=== PATIENT | female | born 1995 | race Caucasian/White ===

== ENCOUNTER 2018-01-28 21:46 | Emergency (ER) | payer BC ==
[2018-01-28] MEDS ORDERED: Sodium Chloride 0.9% 1,000 ML IV ONE (22:25)
[2018-01-28] MEDS ORDERED: Ketorolac 60 MG/2 ML SDV IM ONE (22:25)
[2018-01-28] MEDS ORDERED: Ondansetron 4 MG/2 ML SDV IVPUSH ONE (23:13)
[2018-01-28] MEDS ORDERED: HYDROmorphone 1 MG/ML Syringe IVPUSH ONE (23:46)
[2018-01-29] MEDS ORDERED: HYDROmorphone 1 MG/ML Syringe IVPUSH ONE (01:37)
[2018-01-29] MEDS ORDERED: Ondansetron 4 MG/2 ML SDV IVPUSH ONE (01:37)
--- NOTE | 2018-01-29 02:56 | EDM.PDOC ---
ED HPI GENERAL MEDICAL PROBLEM - General Chief Complaint: Abdominal Pain Stated Complaint: ABDOMINAL PAIN Time Seen by Provider: 01/28/18 21:48 Source of Information: Reports: Patient History Limitations: Reports: No Limitations - History of Present Illness INITIAL COMMENTS - FREE TEXT/NARRATIVE: See dictated documentation. Right Lower Abdominal Pain Score (Numeric/FACES): 9 - Related Data Allergies Allergy/AdvReac Type Severity Reaction Status Date / Time cephalexin [From Keflex] Allergy Cannot Verified 01/28/18 22:03 Remember codeine Allergy Tachycardia Verified 01/28/18 22:03 sertraline [From Zoloft] Allergy Other Verified 01/28/18 22:03 Home Meds: Home Meds Buspar. 01/28/18 [History] Clonazepam. 01/28/18 [History] Effexor. 01/28/18 [History] Hydrocodone/Acetaminophen [Hydrocodon-Acetaminophen 5-325] 1 tab PO Q6H PRN [History] Past Medical History Psychiatric History: Reports: Anxiety, Depression Social & Family History - Tobacco Use Smoking Status *Q: Unknown Ever Smoked ED ROS GENERAL - Review of Systems Review Of Systems: ROS reveals no pertinent complaints other than HPI. ED EXAM, GI/ABD - Physical Exam Exam: See Below Course - Vital Signs Last Recorded V/S: Last Vital Signs Temp 36.8 C 01/28/18 22:04 Pulse 87 01/28/18 22:04 Resp 18 01/28/18 22:04 BP 147/105 H 01/28/18 22:04 Pulse Ox 99 01/28/18 22:04 - Orders/Labs/Meds Orders: Active Orders 24 hr Category Date Time Status Pelvic Exam, Set Up [RC] ASDIRECTED Care 01/28/18 23:20 Active Abdomen Pelvis wo Cont [CT] Stat Exams 01/29/18 01:01 Taken Labs: Laboratory Tests 01/28/18 Range/Units 23:40 Urine Color Yellow (Yellow) Urine Appearance Clear (Clear) Urine pH 6.0 (5.0-8.0) Ur Specific [place] > or = 1.030 (1.005-1.030) Urine Protein 2+ H (Negative) Urine Glucose (UA) Negative (Negative) Urine Ketones Negative (Negative) Urine Occult Blood 2+ H (Negative) Urine Nitrite Negative (Negative) Urine Bilirubin Negative (Negative) Urine Urobilinogen 0.2 (0.2-1.0) Ur Leukocyte Esterase Negative (Negative) Urine RBC 5-10 H (0-5) /hpf Urine WBC Not seen (0-5) /hpf Ur Epithelial Cells 0-5 (0-5) /hpf Urine Bacteria Rare (FEW) /hpf Urine Mucus Not seen (FEW) /hpf Meds: Medications Discontinued Medications Generic Name Dose Route Start Last Admin Trade Name Freq PRN Reason Stop Dose Admin Hydromorphone HCl 1 mg 01/28/18 23:46 01/28/18 23:56 Dilaudid IVPUSH 01/28/18 23:47 1 mg ONETIME ONE Administration Hydromorphone HCl 1 mg 01/29/18 01:37 01/29/18 01:47 Dilaudid IVPUSH 01/29/18 01:38 1 mg ONETIME ONE Administration Sodium Chloride 1,000 mls @ 999 mls/hr 01/28/18 22:25 01/28/18 22:57 Normal Saline IV 01/28/18 23:25 999 mls/hr ONETIME ONE Administration Ketorolac Tromethamine 60 mg 01/28/18 22:25 01/28/18 22:57 Toradol IM 01/28/18 22:26 60 mg ONETIME ONE Administration Ondansetron HCl 4 mg 01/28/18 23:13 01/28/18 23:44 Zofran IVPUSH 01/28/18 23:14 4 mg ONETIME ONE Administration Ondansetron HCl 4 mg 01/29/18 01:37 01/29/18 01:47 Zofran IVPUSH 01/29/18 01:38 4 mg ONETIME ONE Administration Departure - Departure Time of Disposition: 02:54 Disposition: Home, Self-Care 01 Condition: Fair Clinical Impression: Abdominal pain Qualifiers: Abdominal location: lower abdomen, unspecified Qualified Code(s): R10.30 - Lower abdominal pain, unspecified - Discharge Information *PRESCRIPTION DRUG MONITORING PROGRAM REVIEWED*: Not Applicable *COPY OF PRESCRIPTION DRUG MONITORING REPORT IN PATIENT ARUN: Not Applicable Instructions: Abdominal Pain, Adult, [id number] Referrals: PCP,None [Primary Care Provider] - Additional Instructions: Followup with your provider, as discussed. clear liquids. Return if fever or worsening pain. - My Orders Last 24 Hours: My Active Orders 01/28/18 23:20 Pelvic Exam, Set Up [RC] ASDIRECTED 01/29/18 01:01 Abdomen Pelvis wo Cont [CT] Stat - Assessment/Plan Last 24 Hours: My Active Orders 01/28/18 23:20 Pelvic Exam, Set Up [RC] ASDIRECTED 01/29/18 01:01 Abdomen Pelvis wo Cont [CT] Stat
--- NOTE | 2018-01-29 04:00 | ER ---
REASON FOR EMERGENCY ROOM VISIT: Abdominal pain. HISTORY OF PRESENT ILLNESS: This 22-year-old girl comes in with a right-sided abdominal pain. She is accompanied by her partner. She was seen at [facility] in [place] for the same problem several days ago. At which time, she states she had a CT scan that disclosed a 3 cm ovarian cyst. She was given hydrocodone. This whole incident happened approximately 1 week ago. Since then, she has had a rather constant dull pain, which worsened to a certain extent today. She did have nausea and emesis x1 after dinner. She has not had any diarrhea. She denies any fever. She is on the very end of her menstrual period. PAST MEDICAL HISTORY: May be relevant in that she had an ectopic tubal in 2011 and in 2014 had another ectopic requiring a salpingectomy. This was done at [facility] in [place]. Past medical history otherwise includes: 1. Anxiety and depression. 2. History of cholecystectomy in 2015. 3. T and A as a child. CURRENT MEDICATIONS: Effexor and clonazepam. ALLERGIES: To cephalexin, codeine, and sertraline. It is noteworthy that codeine gave her nausea, so this was a true allergy. SOCIAL HISTORY: She lives with her partner. She is not working at this time. HABITS: She admits to smoking one-half pack per day. Alcohol rare. Drugs denies. REVIEW OF SYSTEMS: She has had a recent cold, but this has resolved to a large extent. Otherwise, all pertinent positives and negatives as listed in the HPI. PHYSICAL EXAMINATION: GENERAL: Reveals an obese woman who is somewhat tearful, otherwise in no acute distress. VITAL SIGNS: She is afebrile. Pulse of 87, blood pressure 147/105, respiratory rate 18, O2 sats 99. HEENT: Head is normocephalic. No scleral icterus. Oropharynx is normal with normal appearing hydration. NECK: Supple. No adenopathy. CHEST: Clear. CARDIAC: Regular rate without murmur. ABDOMEN: Obese. She does have some tenderness in the area in the lower midline abdomen and right lower quadrant to deep palpation, but no guarding or rebound. There is no percussion tenderness. No palpable mass. PELVIC: Pelvic examination by a speculum exam was noted and there is some blood from her recent menstrual period. No abnormalities were noted. Bimanual examination revealed that she does not have any tenderness on manipulation of the cervix. I cannot palpate any tender adnexal masses. EXTREMITIES: Normal pulses. No edema. Good perfusion. FURTHER EMERGENCY ROOM COURSE: She had a CT scan. Her urinalysis was abnormal, but she is at the end of her period, so is difficult to make any determinations based on that. We went ahead and obtained a CT scan of her abdomen and pelvis without contrast. There was some suggestion of mesenteric, adenopathy, but the appendix appeared normal and no mucosal bowel abnormalities were noted. There was no fluid. There was no abnormal fluid collections and nothing to explain her symptoms. She did have some irregularity in her left renal cortex suggestive of an old pyelonephritis possibly. Her pain did subside significantly while in the ER. IMPRESSION: Is pelvic pain, uncertain etiology. PLAN: I strongly urged her to follow up with her provider. We will give her some more hydrocodone for her pain. I think followup is going to be critical with her. I emphasized this very clearly. She was given hydrocodone, 5/325, dispensed #10, one q.4 hours p.r.n. pain. She was also given Zofran 4 mg. The patient understands and agrees with this plan. All questions were answered. MMODAL /[id number] TOMAS
== END 2018-01-29 03:10 | disposition home or self-care (01) ==
LOC: JD.ED 21:46
DX: R10.2 Pelvic and perineal pain (principal); R10.31 Right lower quadrant pain; F17.210 Nicotine dependence, cigarettes, uncomplicated; Z88.5 Allergy status to narcotic agent; Z88.8 Allergy status to other drugs, medicaments and biological substances; Z90.49 Acquired absence of other specified parts of digestive tract; Z88.1 Allergy status to other antibiotic agents
CPT/HCPCS: 74176; 81001; 96361; 96372; 96374; 96375; 96376; 99284; J1170; J1885; J2405; J7040

== ENCOUNTER 2018-02-15 19:27 | Emergency (ER) | payer BC ==
[2018-02-15] MEDS ORDERED: Sodium Chloride 0.9% 10 ML Syringe FLUSH PRN (20:17)
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
[2018-02-15] MEDS ORDERED: Ondansetron 4 MG/2 ML SDV IVPUSH ONE (22:08)
[2018-02-15] MEDS ORDERED: HYDROmorphone 0.5 MG/0.5 ML SYRINGE IVPUSH ONE ×2 (22:08→23:51)
[2018-02-16] MEDS ORDERED: HYDROmorphone 0.5 MG/0.5 ML SYRINGE IVPUSH ONE ×3 (00:31→01:59)
[2018-02-16] MEDS ORDERED: Metoclopramide 10 MG/2 ML SDV IVPUSH ONE (01:59)
[2018-02-16] MEDS ORDERED: LORazepam 2 MG/ML SDV IVPUSH ONE (01:59)
--- NOTE | 2018-02-17 11:43 | US ---
Pelvic ultrasound: Multiple real-time images were obtained transvaginally. Comparison: No prior pelvic ultrasound. Uterus is anteverted. No myometrial abnormality is seen. Endometrial thickness is 7 mm. Minimal fluid within the cul-de-sac is seen which is felt to be physiologic. Ovaries appear within normal limits. No large cyst or solid abnormality is seen. Physiologic hemorrhagic cyst is noted within the right ovary measuring 2.5 cm. Measurements: Uterus: Length 8.7 cm, AP height 3.1 cm, transverse width 4.5 cm Right ovary: 3.5 x 2.1 x 2.3 cm Left ovary: 3.2 x 2.2 x 2.9 cm Impression: 1. Nothing acute seen on pelvic ultrasound exam. Diagnostic code #2 I agree with preliminary report from [facility], finalized on 02/15/18, 11:02 PM Central Time
== END 2018-02-16 02:45 | disposition home or self-care (01) ==
LOC: JD.ED 19:27
DX: N83.201 Unspecified ovarian cyst, right side (principal); F41.9 Anxiety disorder, unspecified; F32.9 Major depressive disorder, single episode, unspecified; F17.210 Nicotine dependence, cigarettes, uncomplicated; Z88.8 Allergy status to other drugs, medicaments and biological substances; Z79.899 Other long term (current) drug therapy
CPT/HCPCS: 36415; 76830; 80053; 81001; 84703; 85007; 85027; 86140; 96374; 96375; 96376; 99284; J1170; J2060; J2405; J2765; J7050

== ENCOUNTER 2018-03-02 18:48 | Emergency (ER) | payer OTHER ==
[2018-03-02] MEDS ORDERED: LORazepam 2 MG/ML SDV IM ONE (19:41)
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
== END 2018-03-02 20:56 | disposition home or self-care (01) ==
LOC: JD.ED 18:48
DX: F41.0 Panic disorder [episodic paroxysmal anxiety] (principal); F17.210 Nicotine dependence, cigarettes, uncomplicated; Z88.5 Allergy status to narcotic agent; Z88.8 Allergy status to other drugs, medicaments and biological substances; Z79.899 Other long term (current) drug therapy
CPT/HCPCS: 96372; 99283; J2060; 99284

== ENCOUNTER 2018-03-06 19:25 | Emergency (ER) | payer OTHER ==
--- NOTE | 2018-03-06 20:10 | EDM.PDOC ---
ED HPI GENERAL MEDICAL PROBLEM - General Chief Complaint: Abdominal Pain Stated Complaint: right side pain Time Seen by Provider: 03/06/18 20:10 - History of Present Illness INITIAL COMMENTS - FREE TEXT/NARRATIVE: 22-year-old female presents emergency room with abdominal pain. Patient is been worked up by her health careers instructor for right ovarian and pelvic pain and is waiting to see another physician later this month. However she's got worsening pain that seems to be different from her traditional pain. She has some nausea with this. She's had no constipation or diarrhea. No burning or frequency with urination this worsening pain is been going on for the last several days. She denies being the pain is worse in the right lower quadrant Right Lower Pelvic Pain Score (Numeric/FACES): 9 - Related Data Allergies Allergy/AdvReac Type Severity Reaction Status Date / Time cephalexin [From Keflex] Allergy Cannot Verified 03/02/18 19:11 Remember codeine Allergy Tachycardia Verified 03/02/18 19:11 sertraline [From Zoloft] Allergy Other Verified 03/02/18 19:11 Home Meds: Home Meds Venlafaxine [Effexor XR] 300 mg PO DAILY 02/16/18 [History] busPIRone [Buspar] 10 mg PO BID 02/16/18 [History] clonazePAM [Klonopin] 1 mg PO TID PRN 02/16/18 [History] Past Medical History Genitourinary History: Reports: Pyelonephritis CORE MAKER History: Reports: Ectopic , Other (See Below) Other CORE MAKER History: ovarian cysts Psychiatric History: Reports: Anxiety, Depression, Panic Attack - Infectious Disease History Infectious Disease History: Reports: Chicken Pox - Past Surgical History HEENT Surgical History: Reports: Adenoidectomy, Tonsillectomy, Other (See Below) Other HEENT Surgeries/Procedures: wisdom teeth removed GI Surgical History: Reports: Cholecystectomy Social & Family History - Family History Family Medical History: Noncontributory - Tobacco Use Smoking Status *Q: Current Every Day Smoker Years of Tobacco use: 3 Packs/Tins Daily: 0.5 - Caffeine Use Caffeine Use: Reports: Coffee, Soda, Tea - Recreational Drug Use Recreational Drug Use: No ED ROS GENERAL - Review of Systems Review Of Systems: See Below Constitutional: Reports: No Symptoms HEENT: Reports: No Symptoms Respiratory: Reports: No Symptoms Cardiovascular: Reports: No Symptoms GI/Abdominal: Reports: Abdominal Pain, Nausea. Denies: Constipation, Diarrhea : Reports: No Symptoms. Denies: Discharge, Dysuria Musculoskeletal: Reports: No Symptoms Skin: Reports: No Symptoms Neurological: Reports: No Symptoms ED EXAM, GI/ABD - Physical Exam Exam: See Below Exam Limited By: No Limitations General Appearance: Alert, No Apparent Distress Ears: Normal External Exam Head: Atraumatic, Normocephalic Neck: Normal Inspection, Supple, Non-Tender, Full Range of Motion Respiratory/Chest: No Respiratory Distress, Lungs Clear, Normal Breath Sounds Cardiovascular: Regular Rate, Rhythm, No Edema, No Murmur GI/Abdominal Exam: Other (She has some right-sided lower quadrant discomfort no rigidity rebound or guarding) Back Exam: Normal Inspection. No: CVA Tenderness (L), CVA Tenderness (R) Extremities: Normal Inspection Neurological: Alert, Oriented, Normal Cognition Course - Vital Signs Last Recorded V/S: Last Vital Signs Temp 37.3 C 03/06/18 19:55 Pulse 119 H 03/06/18 19:55 Resp 20 03/06/18 19:55 BP 142/119 H 03/06/18 19:55 Pulse Ox 100 03/06/18 19:55 - Orders/Labs/Meds Orders: Active Orders 24 hr Category Date Time Status Abdomen Pelvis w Cont [CT] Stat Exams 03/06/18 22:52 Taken Sodium Chloride 0.9% [Normal Saline] 1,000 ml Med 03/06/18 20:30 Active IV ASDIRECTED Medication Orders Sodium Chloride (Normal Saline) 1,000 mls @ 250 mls/hr IV ASDIRECTED FREDY Last Admin: 03/06/18 20:51 Dose: 250 mls/hr Labs: Laboratory Tests 03/06/18 03/06/18 03/06/18 Range/Units 20:54 20:54 21:15 WBC 13.48 H (3.98-10.04) K/mm3 RBC 4.51 (3.98-5.22) M/mm3 Hgb 14.0 (11.2-15.7) gm/L Hct 41.7 (34.1-44.9) % MCV 92.5 (79.4-94.8) fl MCH 31.0 (25.6-32.2) pg MCHC 33.6 (32.2-35.5) g/dl RDW Std Deviation 41.1 (36.4-46.3) fL Plt Count 311 (182-369) K/mm3 MPV 8.8 L (9.4-12.3) fl Neutrophils % (Manual) 65 H (40-60) % Band Neutrophils % 0 (0-10) % Lymphocytes % (Manual) 31 (20-40) % Atypical Lymphs % 0 % Monocytes % (Manual) 1 L (2-10) % Eosinophils % (Manual) 2 (0.7-5.8) % Basophils % (Manual) 1 (0.1-1.2) Toxic Granulation Few Platelet Estimate Adequate Plt Morphology Comment Normal RBC Morph Comment Normal Sodium 139 (136-145) mEq/L Potassium 4.0 (3.5-5.1) mEq/L Chloride 105 (98-107) mEq/L Carbon Dioxide 27 (21-32) mEq/L Anion Gap 11.0 (5-15) BUN 11 (7-18) mg/dL Creatinine 1.2 H (0.55-1.02) mg/dL Est Cr Clr Drug Dosing 59.80 mL/min Estimated GFR (MDRD) 55 (>60) mL/min BUN/Creatinine Ratio 9.2 L (14-18) Glucose 102 (74-106) mg/dL Calcium 9.2 (8.5-10.1) mg/dL Total Bilirubin 0.1 L (0.2-1.0) mg/dL AST 16 (15-37) U/L ALT 20 (14-59) U/L Alkaline Phosphatase 94 (46-116) U/L C-Reactive Protein 0.4 (<1.0) mg/dL Total Protein 7.0 (6.4-8.2) g/dl Albumin 3.4 (3.4-5.0) g/dl Globulin 3.6 gm/dL Albumin/Globulin Ratio 0.9 L (1-2) Urine Color (Yellow) Urine Appearance (Clear) Urine pH (5.0-8.0) Ur Specific [place] (1.005-1.030) Urine Protein (Negative) Urine Glucose (UA) (Negative) Urine Ketones (Negative) Urine Occult Blood (Negative) Urine Nitrite (Negative) Urine Bilirubin (Negative) Urine Urobilinogen (0.2-1.0) Ur Leukocyte Esterase (Negative) Urine RBC (0-5) /hpf Urine WBC (0-5) /hpf Ur Epithelial Cells (0-5) /hpf Urine Bacteria (FEW) /hpf Urine Mucus (FEW) /hpf Urine HCG, Qual Negative (NEGATIVE) 03/06/18 Range/Units 21:15 WBC (3.98-10.04) K/mm3 RBC (3.98-5.22) M/mm3 Hgb (11.2-15.7) gm/L Hct (34.1-44.9) % MCV (79.4-94.8) fl MCH (25.6-32.2) pg MCHC (32.2-35.5) g/dl RDW Std Deviation (36.4-46.3) fL Plt Count (182-369) K/mm3 MPV (9.4-12.3) fl Neutrophils % (Manual) (40-60) % Band Neutrophils % (0-10) % Lymphocytes % (Manual) (20-40) % Atypical Lymphs % % Monocytes % (Manual) (2-10) % Eosinophils % (Manual) (0.7-5.8) % Basophils % (Manual) (0.1-1.2) Toxic Granulation Platelet Estimate Plt Morphology Comment RBC Morph Comment Sodium (136-145) mEq/L Potassium (3.5-5.1) mEq/L Chloride (98-107) mEq/L Carbon Dioxide (21-32) mEq/L Anion Gap (5-15) BUN (7-18) mg/dL Creatinine (0.55-1.02) mg/dL Est Cr Clr Drug Dosing mL/min Estimated GFR (MDRD) (>60) mL/min BUN/Creatinine Ratio (14-18) Glucose (74-106) mg/dL Calcium (8.5-10.1) mg/dL Total Bilirubin (0.2-1.0) mg/dL AST (15-37) U/L ALT (14-59) U/L Alkaline Phosphatase (46-116) U/L C-Reactive Protein (<1.0) mg/dL Total Protein (6.4-8.2) g/dl Albumin (3.4-5.0) g/dl Globulin gm/dL Albumin/Globulin Ratio (1-2) Urine Color Light yellow (Yellow) Urine Appearance Clear (Clear) Urine pH 6.5 (5.0-8.0) Ur Specific [place] 1.025 (1.005-1.030) Urine Protein 1+ H (Negative) Urine Glucose (UA) Negative (Negative) Urine Ketones Negative (Negative) Urine Occult Blood Trace-intact H (Negative) Urine Nitrite Negative (Negative) Urine Bilirubin Negative (Negative) Urine Urobilinogen 0.2 (0.2-1.0) Ur Leukocyte Esterase Negative (Negative) Urine RBC 0-5 (0-5) /hpf Urine WBC 0-5 (0-5) /hpf Ur Epithelial Cells 0-5 (0-5) /hpf Urine Bacteria Rare (FEW) /hpf Urine Mucus Few (FEW) /hpf Urine HCG, Qual (NEGATIVE) Meds: Medications Generic Name Dose Route Start Last Admin Trade Name Freq PRN Reason Stop Dose Admin Sodium Chloride 1,000 mls @ 250 mls/hr 03/06/18 20:30 03/06/18 20:51 Normal Saline IV 250 mls/hr ASDIRECTED FREDY Administration Discontinued Medications Generic Name Dose Route Start Last Admin Trade Name Freq PRN Reason Stop Dose Admin Hydrocodone Bitart/Acetaminophen 1 tab 03/06/18 21:01 03/06/18 21:07 [place] 325-5 Mg PO 03/06/18 21:02 1 tab ONETIME ONE Administration Diatrizoate Meglum/Diatrizoate Sod 90 ml 03/06/18 23:35 03/07/18 00:11 Gastrografin 37% PO 03/06/18 23:36 90 ml ONETIME ONE Administration Fentanyl 50 mcg 03/06/18 21:18 03/06/18 21:23 Sublimaze IVPUSH 03/06/18 21:19 50 mcg ONETIME ONE Administration Fentanyl 50 mcg 03/06/18 23:02 03/06/18 23:10 Sublimaze IVPUSH 03/06/18 23:03 50 mcg ONETIME ONE Administration Fentanyl 50 mcg 03/07/18 01:17 Sublimaze IVPUSH 03/07/18 01:18 ONETIME ONE Iopamidol 125 ml 03/06/18 23:35 03/07/18 00:12 Isovue-300 (61%) IVPUSH 03/06/18 23:36 125 ml ONETIME ONE Administration Ondansetron HCl 4 mg 03/06/18 21:18 03/06/18 21:22 Zofran IVPUSH 03/06/18 21:19 4 mg ONETIME ONE Administration Ondansetron HCl 4 mg 03/07/18 01:17 Zofran IVPUSH 03/07/18 01:18 ONETIME ONE - Re-Assessments/Exams Free Text/Narrative Re-Assessment/Exam: 03/06/18 22:51 Patient continues to be in a lot of discomfort she's received opioids and Zofran here laboratory evaluation is unrevealing with the imaging she's had I am not sure CT would be beneficial but the patient is somewhat insistent on it at this point 03/07/18 01:[address] is normal no acute changes. I will discharge the patient with some [place] however I explained or no uncertain terms she needs to talk to her physicians about getting on a routine pain management situation it is not a role emergency room to be treating pain like this and this is turning into a problem for the patient. Departure - Departure Time of Disposition: 01:32 Disposition: Home, Self-Care 01 Clinical Impression: Abdominal pain of unknown cause - Discharge Information Referrals: PCP,None [Primary Care Provider] - Forms: ED Department Discharge Additional Instructions: Follow-up with regular physician and discuss pain management issues. Perhaps you can do this with her health careers instructor. Return to the emergency room with any questions or problems. Use the [place] one or 2 every 6 hours as needed for pain however allow 12 hours after using this medication before driving or returning to work. Use of this medication on a regular basis can cause constipation so use a stool softener if needed. - My Orders Last 24 Hours: My Active Orders 03/06/18 20:30 Sodium Chloride 0.9% [Normal Saline] 1,000 ml IV ASDIRECTED 03/06/18 22:52 Abdomen Pelvis w Cont [CT] Stat - Assessment/Plan Last 24 Hours: My Active Orders 03/06/18 20:30 Sodium Chloride 0.9% [Normal Saline] 1,000 ml IV ASDIRECTED 03/06/18 22:52 Abdomen Pelvis w Cont [CT] Stat
[2018-03-06] MEDS ORDERED: Sodium Chloride 0.9% 1,000 ML IV SCH (20:30)
[2018-03-06] MEDS ORDERED: Acetaminophen/HYDROcodone 325-5 MG Tab PO ONE (21:01)
[2018-03-06] MEDS ORDERED: fentaNYL 100 MCG/2 ML SDV IVPUSH ONE ×2 (21:18→23:02)
[2018-03-06] MEDS ORDERED: Ondansetron 4 MG/2 ML SDV IVPUSH ONE (21:18)
[2018-03-06] MEDS ORDERED: Diatrizoate Meglumine/Diatrizoate Sodium 37% 120 ML Bottle PO ONE (23:35)
[2018-03-06] MEDS ORDERED: Iopamidol 612 MG/ML 150 ML Bottle IVPUSH ONE (23:35)
[2018-03-07] MEDS ORDERED: fentaNYL 100 MCG/2 ML SDV IVPUSH ONE (01:17)
[2018-03-07] MEDS ORDERED: Ondansetron 4 MG/2 ML SDV IVPUSH ONE (01:17)
--- NOTE | 2018-03-08 09:00 | CT ---
CT abdomen and pelvis Technique: Multiple axial sections were obtained from above the dome of the diaphragm inferiorly through the pubic symphysis. Intravenous and oral contrast was utilized. Delayed images were also obtained through the bladder. Comparison: Prior noncontrast CT abdomen and pelvis exam of 01/29/18 is available. Findings: Left kidney is small and shows multiple areas of scarring. Right kidney shows minimal areas of scarring. No ureteral dilatation is seen. No ureteral stone is seen on this exam. Visualized lung bases show nothing acute. Liver shows no focal parenchymal abnormality. Small amount of contrast is noted within the distal esophagus compatible with minimal reflux. Surgical clips are seen from prior cholecystectomy. Adrenal glands show no nodule. Pancreas is within normal limits. Aorta shows no aneurysm. No retroperitoneal adenopathy is seen. Appendix appears normal in size. No pelvic mass or adenopathy is seen. No free fluid or inflammatory change is seen within the abdomen or pelvis. Several slightly prominent lymph nodes are noted within the right lower abdomen within the mesentery which appear stable from previous exam and are felt to be incidental. Mild increased stool seen throughout colon. Delayed images show contrast within the bladder. Bone window settings were reviewed which appear within normal limits for the patient's age. Impression: 1. Scarring within both kidneys, worse on the left side which appear similar to prior CT exam. 2. Small amount of contrast within the distal esophagus compatible with minimal gastroesophageal reflux. 3. Mild increased stool throughout the colon. Other incidental findings. Diagnostic code #2 I agree with preliminary report issued by [facility] ([facility] preliminary report dictated on 03/07/18, 2:20 AM Central Time)
== END 2018-03-07 01:48 | disposition home or self-care (01) ==
LOC: SUPCPDRO 19:25 → JD.ED 19:25
DX: R10.31 Right lower quadrant pain (principal); R11.0 Nausea; Z88.1 Allergy status to other antibiotic agents; Z88.5 Allergy status to narcotic agent; F41.9 Anxiety disorder, unspecified; F32.9 Major depressive disorder, single episode, unspecified; F17.210 Nicotine dependence, cigarettes, uncomplicated
CPT/HCPCS: 36415; 74177; 80053; 81001; 81025; 85007; 85027; 86140; 96361; 96374; 96375; 96376; 99284; A9270; J2405; J3010; J7040; Q9963; Q9967

== ENCOUNTER 2018-06-03 11:19 | Emergency (ER) | payer OTHER ==
[2018-06-03] MEDS ORDERED: Ketorolac 30 MG/ML SDV IVPUSH ONE (12:21)
[2018-06-03] MEDS ORDERED: diphenhydrAMINE 50 MG/ML SDV IVPUSH ONE (12:21)
[2018-06-03] MEDS ORDERED: Ondansetron 4 MG/2 ML SDV IVPUSH ONE (12:23)
[2018-06-03] MEDS ORDERED: Sodium Chloride 0.9% 1,000 ML IV SCH (12:30)
--- NOTE | 2018-06-03 12:33 | EDM.PDOC ---
ED HPI GENERAL MEDICAL PROBLEM - General Chief Complaint: Neuro Symptoms/Deficits Stated Complaint: [facility] Time Seen by Provider: 06/03/18 11:33 Source of Information: Reports: Patient, Old Records, RN Notes Reviewed, Significant Other (girlfriend) History Limitations: Reports: No Limitations - History of Present Illness INITIAL COMMENTS - FREE TEXT/NARRATIVE: Patient is a 22 year old female who presents to the ED via ambulance for the evaluation of a seizure episode. She was evaluated in the ED last night by Dr. Retana for her seizure activity and was diagnosed with pseudo-seizures. She was discharged home this morning around 8AM. The girlfriend states that she ate a bagel and then was tired and wanted to go to bed. The girlfriend noted that the patient started to have seizure like activity once again where she ended up holding her breath for around 25 seconds and turned "purple". The girlfriend notes that the patient does have sleep apnea and uses a CPAP machine, and this was taken off the patient with this episode. 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 The patient states that she has been seen by a neurologist when she was 12 at the [facility] in [place], she further notes that her grandfather has epilepsy. She admits to having a headache, and feelings of nausea. When she was having her seizures, she was not witnessed to have lost control of her bladder or bowels, or bite her tongue. She is not post-ictal and is answering questions appropriately. Treatments FRAME ASSEMBLER: Reports: IV/IO - Related Data Allergies Allergy/AdvReac Type Severity Reaction Status Date / Time cephalexin [From Keflex] Allergy Cannot Verified 06/03/18 11:35 Remember ketorolac [From Toradol] Allergy Other Verified 06/03/18 11:35 sertraline [From Zoloft] Allergy Hives Verified 06/03/18 11:35 Home Meds: Home Meds Venlafaxine [Effexor XR] 300 mg PO DAILY 02/16/18 [History] busPIRone [Buspar] 15 mg PO TID 02/16/18 [History] clonazePAM [Klonopin] 1.5 mg PO BID PRN 02/16/18 [History] Cholecalciferol (Vitamin D3) [Vitamin D3] 2,000 unit PO DAILY 03/25/18 [History] Varenicline Tartrate [Chantix] 1 dose PO ASDIRECTED 04/15/18 [History] Misoprostol [Cytotec] 200 mcg PO Q6H #20 tablet 05/18/18 [Rx] oxyCODONE HCl/Acetaminophen [Percocet 5-325 mg Tablet] 1 - 2 each PO Q4H PRN # 12 tablet 05/18/18 [Rx] Topiramate [Topamax] 25 mg PO BID #28 tab 06/03/18 [Rx] Past Medical History HEENT History: Reports: Impaired Vision Cardiovascular History: Reports: None Respiratory History: Reports: Sleep Apnea Gastrointestinal History: Reports: None Genitourinary History: Reports: Pyelonephritis, UTI, Recurrent RAILWAY ENGINEER History: Reports: Ectopic , Spontaneous , Other (See Below) Other RAILWAY ENGINEER History: ovarian cysts, "heterotopic ." right fallopian tube removed. Musculoskeletal History: Reports: None Neurological History: Reports: None Psychiatric History: Reports: Anxiety, Depression, Panic Attack, Other (See Below) Endocrine/Metabolic History: Reports: Obesity/BMI 30+ Hematologic History: Reports: None Immunologic History: Reports: None Oncologic (Cancer) History: Reports: None Dermatologic History: Reports: None - Infectious Disease History Infectious Disease History: Reports: Chicken Pox - Past Surgical History Head Surgeries/Procedures: Reports: None HEENT Surgical History: Reports: Adenoidectomy, Oral Surgery, Tonsillectomy Cardiovascular Surgical History: Reports: None GI Surgical History: Reports: Cholecystectomy Female Surgical History: Reports: Oophorectomy, Other (See Below) Other Female Surgeries/Procedures: right ovary removed March 2018, irregular periods Neurological Surgical History: Reports: None Musculoskeletal Surgical History: Reports: None Oncologic Surgical History: Reports: None Dermatological Surgical History: Reports: None Social & Family History - Family History Family Medical History: Noncontributory - Tobacco Use Smoking Status *Q: Unknown Ever Smoked - Caffeine Use Caffeine Use: Reports: Other Other Caffeine Use: unable to determine - Recreational Drug Use Recreational Drug Use: No - Living Situation & Occupation Living situation: Reports: Single Occupation: Employed ED ROS GENERAL - Review of Systems Review Of Systems: See Below Constitutional: Reports: Fatigue. Denies: Fever, Chills HEENT: Reports: No Symptoms Respiratory: Reports: No Symptoms Cardiovascular: Reports: No Symptoms Endocrine: Reports: No Symptoms GI/Abdominal: Reports: Other (recent GI illness which included diarrhea and vomiting, she is not having this now.) : Reports: No Symptoms Musculoskeletal: Reports: No Symptoms Skin: Reports: No Symptoms Neurological: Reports: Headache, Seizure (hx/o pseudoseizure and epilepsy) Psychiatric: Reports: No Symptoms Hematologic/Lymphatic: Reports: No Symptoms Immunologic: Reports: No Symptoms - Physical Exam Exam: See Below Exam Limited By: No Limitations General Appearance: Alert, WD/WN, No Apparent Distress (pt is tearful at initial presentation) Ears: Normal External Exam Nose: Normal Inspection Throat/Mouth: Normal Inspection, Normal Oropharynx, No Airway Compromise Head Exam: Atraumatic, Normocephalic Neck: Normal Inspection, Supple, Non-Tender, Full Range of Motion Respiratory/Chest: No Respiratory Distress, Lungs Clear, Normal Breath Sounds, No Accessory Muscle Use, Chest Non-Tender Cardiovascular: Normal Peripheral Pulses, Regular Rate, Rhythm, No Murmur GI/Abdominal: Normal Bowel Sounds, Soft, Non-Tender, No Distention, No Mass Neuro Exam (Abbreviated): Alert, Oriented, Normal Cognition, Normal Gait, Normal Reflexes, No Motor/Sensory Deficits Extremities: Normal Inspection, Normal Capillary Refill Psychiatric: Tearful Skin Exam: Warm, Dry, Intact, Normal Color, No Rash EKG INTERPRETATION EKG Date: 06/03/18 Time: 12:49 Rhythm: Other (sinus tach) Rate (Beats/Min): 100 [place]: Normal P-Wave: Present QRS: Normal ST-T: Normal QT: Normal EKG Interpretation Comments: reviewed with Dr. Flood. Course - Vital Signs Last Recorded V/S: Last Vital Signs Temp 97.5 F 06/03/18 11:22 Pulse 102 H 06/03/18 11:22 Resp 16 06/03/18 11:22 BP 161/100 H 06/03/18 11:22 Pulse Ox 99 06/03/18 11:22 - Orders/Labs/Meds Orders: Active Orders 24 hr Category Date Time Status EKG Documentation Completion [RC] STAT Care 06/03/18 11:43 Active Labs: Laboratory Tests 06/03/18 06/03/18 06/03/18 Range/Units 12:20 12:20 12:20 WBC 11.10 H (3.98-10.04) K/mm3 RBC 4.61 (3.98-5.22) M/mm3 Hgb 14.1 (11.2-15.7) gm/L Hct 43.0 (34.1-44.9) % MCV 93.3 (79.4-94.8) fl MCH 30.6 (25.6-32.2) pg MCHC 32.8 (32.2-35.5) g/dl RDW Std Deviation 42.1 (36.4-46.3) fL Plt Count 321 (182-369) K/mm3 MPV 8.4 L (9.4-12.3) fl Neutrophils % (Manual) 68 H (40-60) % Band Neutrophils % 1 (0-10) % Lymphocytes % (Manual) 28 (20-40) % Atypical Lymphs % 0 % Monocytes % (Manual) 2 (2-10) % Eosinophils % (Manual) 0 L (0.7-5.8) % Basophils % (Manual) 1 (0.1-1.2) Platelet Estimate Adequate RBC Morph Comment Normal Sodium 143 (136-145) mEq/L Potassium 3.9 (3.5-5.1) mEq/L Chloride 107 (98-107) mEq/L Carbon Dioxide 27 (21-32) mEq/L Anion Gap 12.9 (5-15) BUN 13 (7-18) mg/dL Creatinine 1.0 (0.55-1.02) mg/dL Est Cr Clr Drug Dosing 81.21 mL/min Estimated GFR (MDRD) > 60 (>60) mL/min BUN/Creatinine Ratio 13.0 L (14-18) Glucose 85 (74-106) mg/dL Calcium 9.0 (8.5-10.1) mg/dL Total Bilirubin 0.2 (0.2-1.0) mg/dL AST 16 (15-37) U/L ALT 22 (14-59) U/L Alkaline Phosphatase 81 (46-116) U/L Total Protein 7.3 (6.4-8.2) g/dl Albumin 3.4 (3.4-5.0) g/dl Globulin 3.9 gm/dL Albumin/Globulin Ratio 0.9 L (1-2) TSH 3rd Generation 1.473 (0.358-3.74) uIU/mL Salicylates 2.2 L (2.8-20) mg/dL Urine Opiates Screen (HBRKMX=279) Ur Buprenorphine Scrn (CUTOFF=10) Ur Oxycodone Screen (ISY7SV=954) Urine Methadone Screen (AIVLMY=086) Ur Propoxyphene Screen (FCHBPW=763) Acetaminophen 0 L (10-30) ug/mL Ur Barbiturates Screen (ZKEAGP=009) Ur Tricyclics Screen (OGBVXN=904) Ur Phencyclidine Scrn (CUTOFF=25) Ur Amphetamine Screen (PQLCID=439) U Methamphetamines Scrn (PBGDMV=027) U Benzodiazepines Scrn (KQPPZU=088) U Cocaine Metab Screen (YCFLUW=995) U Marijuana (THC) Screen (CUTOFF=50) Ethyl Alcohol 0.00 (0.00) gm% 06/03/18 Range/Units 13:10 WBC (3.98-10.04) K/mm3 RBC (3.98-5.22) M/mm3 Hgb (11.2-15.7) gm/L Hct (34.1-44.9) % MCV (79.4-94.8) fl MCH (25.6-32.2) pg MCHC (32.2-35.5) g/dl RDW Std Deviation (36.4-46.3) fL Plt Count (182-369) K/mm3 MPV (9.4-12.3) fl Neutrophils % (Manual) (40-60) % Band Neutrophils % (0-10) % Lymphocytes % (Manual) (20-40) % Atypical Lymphs % % Monocytes % (Manual) (2-10) % Eosinophils % (Manual) (0.7-5.8) % Basophils % (Manual) (0.1-1.2) Platelet Estimate RBC Morph Comment Sodium (136-145) mEq/L Potassium (3.5-5.1) mEq/L Chloride (98-107) mEq/L Carbon Dioxide (21-32) mEq/L Anion Gap (5-15) BUN (7-18) mg/dL Creatinine (0.55-1.02) mg/dL Est Cr Clr Drug Dosing mL/min Estimated GFR (MDRD) (>60) mL/min BUN/Creatinine Ratio (14-18) Glucose (74-106) mg/dL Calcium (8.5-10.1) mg/dL Total Bilirubin (0.2-1.0) mg/dL AST (15-37) U/L ALT (14-59) U/L Alkaline Phosphatase (46-116) U/L Total Protein (6.4-8.2) g/dl Albumin (3.4-5.0) g/dl Globulin gm/dL Albumin/Globulin Ratio (1-2) TSH 3rd Generation (0.358-3.74) uIU/mL Salicylates (2.8-20) mg/dL Urine Opiates Screen Presumptive positive H (ULTUGZ=722) Ur Buprenorphine Scrn Negative (CUTOFF=10) Ur Oxycodone Screen Negative (IUR4TG=559) Urine Methadone Screen Negative (AYZJWN=687) Ur Propoxyphene Screen Negative (SEAFTZ=093) Acetaminophen (10-30) ug/mL Ur Barbiturates Screen Negative (ZFIDPH=377) Ur Tricyclics Screen Negative (SIJVGO=560) Ur Phencyclidine Scrn Negative (CUTOFF=25) Ur Amphetamine Screen Negative (FWBPYH=709) U Methamphetamines Scrn Negative (IENDID=535) U Benzodiazepines Scrn Presumptive positive H (SPJKUM=048) U Cocaine Metab Screen Negative (SDOOPU=154) U Marijuana (THC) Screen Negative (CUTOFF=50) Ethyl Alcohol (0.00) gm% Meds: Medications Discontinued Medications Generic Name Dose Route Start Last Admin Trade Name Freq PRN Reason Stop Dose Admin Diphenhydramine HCl 25 mg 06/03/18 12:21 06/03/18 13:07 Benadryl IVPUSH 06/03/18 12:22 25 mg ONETIME ONE Administration Sodium Chloride 1,000 mls @ 500 mls/hr 06/03/18 12:30 06/03/18 13:04 Normal Saline IV 500 mls/hr ASDIRECTED FREDY Administration Ketorolac Tromethamine 30 mg 06/03/18 12:21 06/03/18 13:06 Toradol IVPUSH 06/03/18 12:22 30 mg ONETIME ONE Administration Ondansetron HCl 4 mg 06/03/18 12:23 06/03/18 13:05 Zofran IVPUSH 06/03/18 12:24 4 mg ONETIME ONE Administration - Re-Assessments/Exams Free Text/Narrative Re-Assessment/Exam: 06/03/18 12:37 Pt presents to the ED for the evaluation of a seizure episode shortly after ED discharge this AM. Upon review of Dr. Retana's work-up in ED, this seizure activity is strongly suggestive of a psychosocial component precipitant. Her workup in ED last night was fairly benign. The patient and girlfriend had questioned the possibility of being sent to [facility] for a possible psychiatric evaluation to see if the patient's meds are appropriate for dealing with increased seizure activity. It was assured to them that this is likely due to increased stress. I have ordered labs and tests for med clearance for a possible psych eval. The urine drug/tox screen was not done by Dr. Retana last night. Have also ordered 4mg IV zofran, 30 mg IV toradol, 25 mg IV benadryl and IV fluid bolus for her headache. 06/03/18 13:43 Labs have returned and are essentially WNL, EKG does not demonstrate any acute abnormalites. Will consult neurologist/psychiatry acquisition professional at [facility] in [place] for possible suggestions on further management. 06/03/18 14:02 Neurologist consulted thought this may be more of a psychiatric issue, Pyschiatrist acquisition professional suggested that the patient have outpatient psychiatric and neurology eval. Will try to consult Dr. Bourne through telepsych to see if he will be able to provide any direction for further management. 06/03/18 15:31 Dr. Bourne was consulted with case, he recommends that she take her clonazepam 1 mg TID, and start topiramate 25mg BID to see if this does not provide her some benefit, with an outpatient follow up with her primary care doctor. Departure - Departure Time of Disposition: 15:33 Disposition: Home, Self-Care 01 Condition: Fair Clinical Impression: Witnessed seizure-like activity - Discharge Information *PRESCRIPTION DRUG MONITORING PROGRAM REVIEWED*: No *COPY OF PRESCRIPTION DRUG MONITORING REPORT IN PATIENT ARUN: No Prescriptions: Topiramate [Topamax] 25 mg PO BID #28 tab Instructions: Seizure, Adult, [id number] Referrals: Suzanne Roldan PA [Primary Care Provider] - Forms: ED Department Discharge Additional Instructions: You have been evaluated in the ED for seizure-like activity. Dr. Bourne, our telepsych doctor recommended starting Topiramate 25 mg BID, and taking your clonazepam 1 mg TID to see if this does not prove further seizure relief. You will be provided with a script for topiramate, this will be sent to [facility] located on [address]. Dr. Bourne also recommended follow up with the doctor that provides your prescriptions for follow-up. Please return to ED if your symptoms should change or worsen. - My Orders Last 24 Hours: My Active Orders 06/03/18 11:43 EKG Documentation Completion [RC] STAT - Assessment/Plan Last 24 Hours: My Active Orders 06/03/18 11:43 EKG Documentation Completion [RC] STAT
[2018-06-03 13:03] LABS: ACETAMINOPHEN 0 ug/mL (10-30)
== END 2018-06-03 15:57 | disposition home or self-care (01) ==
LOC: JD.ED 11:19
DX: R56.9 Unspecified convulsions (principal); F41.9 Anxiety disorder, unspecified; F32.9 Major depressive disorder, single episode, unspecified; Z79.899 Other long term (current) drug therapy
CPT/HCPCS: 36415; 80053; 80306; 84443; 85007; 85027; 93005; 96361; 96374; 96375; 99285; G0480; J1200; J1885; J2405; J7040; 93010; 99284

== ENCOUNTER 2018-06-08 17:46 | Emergency (ER) | payer OTHER ==
--- NOTE | 2018-06-08 19:24 | EDM.PDOC ---
ED HPI GENERAL MEDICAL PROBLEM - General Chief Complaint: Neurological Problem Stated Complaint: SOB Time Seen by Provider: 06/08/18 19:23 - History of Present Illness INITIAL COMMENTS - FREE TEXT/NARRATIVE: 22-year-old female returns emergency room with continued seizure-like activity. Patient had 2 episodes earlier today. She had breath-holding with these apparent involuntary movements. These episodes last about 30 seconds upon termination of the event she breaks out crying. She has no loss of bowel or bladder control. Patient's girlfriend is somewhat concerned about this with the lack of breathing during these episodes. Patient is scheduled to have an EEG tomorrow and she supposed to be sleep deprived did not sleep tonight. She is been to neurology but they have nothing to offer as they believe she's having pseudoseizures and recommend psychology/psychiatric care. Issues and recent multiple CTs laboratory evaluation with indeterminate results. Generalized Pain Score (Numeric/FACES): 8 - Related Data Allergies Allergy/AdvReac Type Severity Reaction Status Date / Time cephalexin [From Keflex] Allergy Cannot Verified 06/08/18 18:16 Remember ketorolac [From Toradol] Allergy Other Verified 06/08/18 18:16 sertraline [From Zoloft] Allergy Hives Verified 06/08/18 18:16 Home Meds: Home Meds Venlafaxine [Effexor XR] 300 mg PO DAILY 02/16/18 [History] busPIRone [Buspar] 15 mg PO TID 02/16/18 [History] clonazePAM [Klonopin] 1.5 mg PO BID PRN 02/16/18 [History] Cholecalciferol (Vitamin D3) [Vitamin D3] 2,000 unit PO DAILY 03/25/18 [History] Topiramate [Topamax] 25 mg PO BID #28 tab 06/03/18 [Rx] Past Medical History HEENT History: Reports: Impaired Vision Cardiovascular History: Reports: None Respiratory History: Reports: Sleep Apnea Gastrointestinal History: Reports: None Genitourinary History: Reports: Pyelonephritis, UTI, Recurrent 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 Musculoskeletal History: Reports: None Neurological History: Reports: Other (See Below) Other Neuro History: pseudoseizures Psychiatric History: Reports: Anxiety, Depression, Panic Attack Endocrine/Metabolic History: Reports: Obesity/BMI 30+ Hematologic History: Reports: None Immunologic History: Reports: None Oncologic (Cancer) History: Reports: None Dermatologic History: Reports: None - Infectious Disease History Infectious Disease History: Reports: Chicken Pox - Past Surgical History Head Surgeries/Procedures: Reports: None HEENT Surgical History: Reports: Adenoidectomy, Oral Surgery, Tonsillectomy Cardiovascular Surgical History: Reports: None GI Surgical History: Reports: Cholecystectomy Female Surgical History: Reports: Oophorectomy, Other (See Below) Other Female Surgeries/Procedures: right ovary removed March 2018, irregular periods Neurological Surgical History: Reports: None Musculoskeletal Surgical History: Reports: None Oncologic Surgical History: Reports: None Dermatological Surgical History: Reports: None Social & Family History - Family History Family Medical History: Noncontributory - Tobacco Use Smoking Status *Q: Unknown Ever Smoked - Caffeine Use Caffeine Use: Reports: Other Other Caffeine Use: unable to determine - Living Situation & Occupation Living situation: Reports: Single Occupation: Employed [facility] [employer] GENERAL - Review of Systems Review Of Systems: See Below Constitutional: Reports: Fever, Chills HEENT: Reports: No Symptoms Respiratory: Reports: No Symptoms Cardiovascular: Reports: No Symptoms Endocrine: Reports: No Symptoms, Other (Lately she's been eating fairly simple high carb diet) GI/Abdominal: Reports: No Symptoms : Reports: No Symptoms Musculoskeletal: Reports: No Symptoms Skin: Reports: No Symptoms Neurological: Reports: Seizure. Denies: Syncope Psychiatric: Reports: Anxiety, Depression. Denies: Suicidal Ideation Hematologic/Lymphatic: Reports: No Symptoms Immunologic: Reports: No Symptoms ED EXAM, GENERAL - Physical Exam Exam: See Below Exam Limited By: No Limitations General Appearance: Alert, No Apparent Distress Eye Exam: Bilateral Eye: EOMI, Normal Inspection, PERRL Ears: Normal External Exam, Normal Canal, Hearing Grossly Normal, Normal TMs Nose: Normal Inspection, Normal Mucosa, No Blood Throat/Mouth: Normal Inspection (No evidence of lip trauma tongue trauma or buccal mucosal trauma no evidence of recent), Normal Lips, Normal Teeth, Normal Gums, Normal Oropharynx, Normal Voice, No Airway Compromise Head: Atraumatic ( bleeding), Normocephalic Neck: Normal Inspection, Supple, Non-Tender, Full Range of Motion. No: Lymphadenopathy (L), Lymphadenopathy (R) Respiratory/Chest: No Respiratory Distress, Lungs Clear, Normal Breath Sounds Cardiovascular: Regular Rate, Rhythm, No Edema, No Murmur GI/Abdominal: Normal Bowel Sounds, Soft, Non-Tender Back Exam: Normal Inspection. No: CVA Tenderness (L), CVA Tenderness (R) Neurological: Other (Cranial nurse 2 through 12 grossly intact all muscle groups the upper and lower extremities recall appropriate bilaterally deep tendon reflexes the brachial radialis are equal and appropriate bilaterally. Cerebellar testing is entirely within normal limits. Patient has normal cognition is alert and oriented) Skin Exam: Warm, Dry, Intact Course - Vital Signs Last Recorded V/S: Last Vital Signs Temp 36.9 C 06/08/18 18: Pulse 108 H 06/08/18 18: Resp 18 06/08/18 18: BP 124/91 H 06/08/18 18: Pulse Ox 98 06/08/18 18:19 - Re-Assessments/Exams Free Text/Narrative Re-Assessment/Exam: 06/08/18 20:12 I had a long talk with the patient and her significant other and asked how I could best help them they agreed that further laboratory testing repeat imaging is probably no benefit. It is crucial to get the sleep deprived EEG in the morning as it is scheduled as this is can help answer some questions. I believe her seizure activity is most consistent with pseudoseizures and I explained that to the patient and her significant other however we need to get the cause whatever distance driving this and address treatment most appropriate length. They tend to agree they would like to go home at this time Departure - Departure Time of Disposition: 20:13 Disposition: Home, Self-Care 01 Clinical Impression: Witnessed seizure-like activity, Pseudoseizures - Discharge Information Referrals: Suzanne Roldan PA [Primary Care Provider] - Forms: ED Department Discharge Additional Instructions: No return to emergency room with any questions problems worsening symptoms. Anticipate EEG in the morning follow the directions for sleep deprivation tonight. Follow-up with your regular provider as directed
== END 2018-06-08 20:20 | disposition home or self-care (01) ==
LOC: JD.ED 17:46
DX: F44.5 Conversion disorder with seizures or convulsions (principal); E66.9 Obesity, unspecified; Z88.1 Allergy status to other antibiotic agents; Z88.8 Allergy status to other drugs, medicaments and biological substances; Z79.899 Other long term (current) drug therapy
CPT/HCPCS: 99282; 99283

== ENCOUNTER 2018-06-10 08:27 | Emergency (ER) | payer OTHER ==
--- NOTE | 2018-06-10 09:22 | EDM.PDOC ---
ED HPI GENERAL MEDICAL PROBLEM - General Chief Complaint: Respiratory Problem Stated Complaint: SOB Time Seen by Provider: 06/10/18 08:41 Source of Information: Reports: Patient History Limitations: Reports: No Limitations - History of Present Illness INITIAL COMMENTS - FREE TEXT/NARRATIVE: The patient presents after a seizure this morning. She says she had 2 of them this morning. She stopped breathing for a short time with them and was short of breath after. She has been here multiple times in the past couple of weeks. She says she was diagnosed years ago with epilepsy at an epilepsy center in [facility]. She is not on any medications now. She was seen here last week and she had labs and a CT done. She has been seen a few more times. Her provider Suzanne Roldan ordered an EEG that was done yesterday. 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 Neurology and psychiatry were both consulted. They did recommend some changes to her meds. She continues to have the seizures. She has never had a tongue abrasion or wet herself before but today she said she did wet herself. She says she has been nauseated and not able to eat or drink. She has a headache. She has no fever, chills, cough, or chest pain. She has abdominal pain but that is being worked up by her provider. She has no gallbladder and recent CT and US of her abdomen looked good. She has generalized weakness but no numbness. 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 She also complains of generalized body aches. Onset: Sudden Duration: Hour(s): Location: Reports: Generalized Quality: Reports: Ache Severity: Moderate Improves with: Reports: None Worsens with: Reports: None Associated Symptoms: Reports: Headaches, Nausea/Vomiting. Denies: Chest Pain, Cough, Fever/Chills, Shortness of Breath Generalized Pain Score (Numeric/FACES): 7 - Related Data Allergies Allergy/AdvReac Type Severity Reaction Status Date / Time cephalexin [From Keflex] Allergy Cannot Verified 06/08/18 18:16 Remember egg Allergy Hives Verified 06/10/18 08:35 ketorolac [From Toradol] Allergy Other Verified 06/08/18 18:16 sertraline [From Zoloft] Allergy Hives Verified 06/08/18 18:16 Home Meds: Home Meds Venlafaxine [Effexor XR] 300 mg PO DAILY 02/16/18 [History] busPIRone [Buspar] 15 mg PO TID 02/16/18 [History] clonazePAM [Klonopin] 1.5 mg PO BID PRN 02/16/18 [History] Cholecalciferol (Vitamin D3) [Vitamin D3] 2,000 unit PO DAILY 03/25/18 [History] Topiramate [Topamax] 25 mg PO BID #28 tab 06/03/18 [Rx] Past Medical History HEENT History: Reports: Impaired Vision Cardiovascular History: Reports: None Respiratory History: Reports: Sleep Apnea Gastrointestinal History: Reports: None Genitourinary History: Reports: Pyelonephritis, UTI, Recurrent PATCHER HELPER History: Reports: Ectopic , Spontaneous , Other (See Below) Other PATCHER HELPER History: ovarian cysts, "heterotopic ." right fallopian tube removed. Musculoskeletal History: Reports: None Neurological History: Reports: Other (See Below) Other Neuro History: pseudoseizures Psychiatric History: Reports: Anxiety, Depression, Panic Attack Endocrine/Metabolic History: Reports: Obesity/BMI 30+ Hematologic History: Reports: None Immunologic History: Reports: None Oncologic (Cancer) History: Reports: None Dermatologic History: Reports: None - Infectious Disease History Infectious Disease History: Reports: Chicken Pox - Past Surgical History Head Surgeries/Procedures: Reports: None HEENT Surgical History: Reports: Adenoidectomy, Oral Surgery, Tonsillectomy Cardiovascular Surgical History: Reports: None GI Surgical History: Reports: Cholecystectomy Female Surgical History: Reports: Oophorectomy, Other (See Below) Other Female Surgeries/Procedures: right ovary removed March 2018, irregular periods Neurological Surgical History: Reports: None Musculoskeletal Surgical History: Reports: None Oncologic Surgical History: Reports: None Dermatological Surgical History: Reports: None Social & Family History - Family History Family Medical History: Noncontributory - Tobacco Use Smoking Status *Q: Current Every Day Smoker Years of Tobacco use: 3 Packs/Tins Daily: 0.5 - Caffeine Use Caffeine Use: Reports: None Other Caffeine Use: unable to determine - Recreational Drug Use Recreational Drug Use: No - Living Situation & Occupation Living situation: Reports: Single Occupation: Employed ED ROS GENERAL - Review of Systems Review Of Systems: See Below Constitutional: Reports: No Symptoms HEENT: Reports: No Symptoms Respiratory: Reports: Shortness of Breath Cardiovascular: Reports: No Symptoms Endocrine: Reports: No Symptoms GI/Abdominal: Reports: Nausea. Denies: Abdominal Pain, Vomiting : Reports: No Symptoms ED EXAM, GENERAL - Physical Exam Exam: See Below Exam Limited By: No Limitations General Appearance: Alert, No Apparent Distress Ears: Normal External Exam Nose: Normal Inspection Head: Atraumatic, Normocephalic Neck: Normal Inspection, Supple, Non-Tender Respiratory/Chest: No Respiratory Distress, Lungs Clear, Normal Breath Sounds Cardiovascular: Regular Rate, Rhythm, No Edema, No Murmur GI/Abdominal: Soft, Non-Tender, No Organomegaly, No Mass Back Exam: Normal Inspection Extremities: Normal Inspection Course - Vital Signs Last Recorded V/S: Last Vital Signs Temp 97.3 F 06/10/18 08:35 Pulse 114 H 06/10/18 08:35 Resp 18 06/10/18 08:35 BP 131/98 H 06/10/18 08:35 Pulse Ox 98 06/10/18 08:35 - Orders/Labs/Meds Orders: Active Orders 24 hr Category Date Time Status Cardiac Monitoring [RC] . DIRECTED Care 06/10/18 09:07 Active Labs: Laboratory Tests 06/10/18 06/10/18 Range/Units 09:30 09:30 WBC 8.06 (3.98-10.04) K/mm3 RBC 4.54 (3.98-5.22) M/mm3 Hgb 14.0 (11.2-15.7) gm/L Hct 42.3 (34.1-44.9) % MCV 93.2 (79.4-94.8) fl MCH 30.8 (25.6-32.2) pg MCHC 33.1 (32.2-35.5) g/dl RDW Std Deviation 42.3 (36.4-46.3) fL Plt Count 315 (182-369) K/mm3 MPV 8.5 L (9.4-12.3) fl Neut % (Auto) 61.1 (34.0-71.1) % Lymph % (Auto) 26.8 (19.3-51.7) % [place] % (Auto) 7.3 (4.7-12.5) % Eos % (Auto) 4.2 (0.7-5.8) Baso % (Auto) 0.4 (0.1-1.2) % Neut # (Auto) 4.92 (1.56-6.13) K/mm3 Lymph # (Auto) 2.16 (1.18-3.74) K/mm3 [place] # (Auto) 0.59 H (0.24-0.36) K/mm3 Eos # (Auto) 0.34 (0.04-0.36) K/mm3 Baso # (Auto) 0.03 (0.01-0.08) K/mm3 Sodium 142 (136-145) mEq/L Potassium 4.0 (3.5-5.1) mEq/L Chloride 107 (98-107) mEq/L Carbon Dioxide 25 (21-32) mEq/L Anion Gap 14.0 (5-15) BUN 15 (7-18) mg/dL Creatinine 1.1 H (0.55-1.02) mg/dL Est Cr Clr Drug Dosing 65.23 mL/min Estimated GFR (MDRD) > 60 (>60) mL/min BUN/Creatinine Ratio 13.6 L (14-18) Glucose 75 (74-106) mg/dL Calcium 9.0 (8.5-10.1) mg/dL Total Bilirubin 0.2 (0.2-1.0) mg/dL AST 19 (15-37) U/L ALT 30 (14-59) U/L Alkaline Phosphatase 76 (46-116) U/L Total Protein 7.3 (6.4-8.2) g/dl Albumin 3.4 (3.4-5.0) g/dl Globulin 3.9 gm/dL Albumin/Globulin Ratio 0.9 L (1-2) Meds: Medications Discontinued Medications Generic Name Dose Route Start Last Admin Trade Name Freq PRN Reason Stop Dose Admin Ibuprofen 600 mg 06/10/18 09:08 06/10/18 09:32 Motrin PO 06/10/18 09:09 600 mg ONETIME ONE Administration Ondansetron HCl 4 mg 06/10/18 09:08 06/10/18 09:31 Zofran Odt PO 06/10/18 09:09 4 mg ONETIME ONE Administration - Re-Assessments/Exams Free Text/Narrative Re-Assessment/Exam: 06/10/18 09:24 I ordered zofran 4mg ODT, motrin 600mg PO, and labs. I called our radiology department and got her an MRI for ThursdayJune 14 at 2:30pm. I also called [facility] in [place] and got her in to neurology with Dr Lacey at 1:30 ThursdayJuly 28. That was the soonest they had. 06/10/18 10:28 Her labs look good. She wanted more for her headache. She can take tylenol at home. Departure - Departure Time of Disposition: 10:30 Disposition: Home, Self-Care 01 Condition: Good Clinical Impression: Seizure Headache Qualifiers: Headache type: unspecified Headache chronicity pattern: acute headache Intractability: not intractable Qualified Code(s): R51 - Headache - Discharge Information *PRESCRIPTION DRUG MONITORING PROGRAM REVIEWED*: No *COPY OF PRESCRIPTION DRUG MONITORING REPORT IN PATIENT ARUN: No Referrals: Suzanne Roldan PA [Primary Care Provider] - 1 Week Forms: ED Department Discharge Additional Instructions: Take your medication as prescribed. Get plenty of rest. Do not drink alcohol and eat a healthy diet that includes plenty of protein and avoid simple sugars and carbs. I have schedules an MRI of your brain for ThursdayJune 14 at 2:30pm. Please come to the front to register and come a half hour early. I also scheduled you to see a neurologist on July 28 at 1:30pm [facility]. You will be seeing Dr Lacey. Follow up with Suzanne Roldan within a week. - My Orders Last 24 Hours: My Active Orders 06/10/18 09:07 Cardiac Monitoring [RC] . DIRECTED - Assessment/Plan Last 24 Hours: My Active Orders 06/10/18 09:07 Cardiac Monitoring [RC] . DIRECTED
[2018-06-10] MEDS: Ondansetron 4 MG Tab.DIS PO ONE (09:31)
[2018-06-10] MEDS: Ibuprofen 600 MG Tab PO ONE (09:32)
== END 2018-06-10 10:38 | disposition home or self-care (01) ==
LOC: JD.ED 08:27
DX: R56.9 Unspecified convulsions (principal); R51 Headache; E66.9 Obesity, unspecified; F17.210 Nicotine dependence, cigarettes, uncomplicated; Z98.890 Other specified postprocedural states; Z90.49 Acquired absence of other specified parts of digestive tract; Z88.1 Allergy status to other antibiotic agents; Z91.012 Allergy to eggs
CPT/HCPCS: 36415; 80053; 85025; 99284; 99285; A9270-GY

== ENCOUNTER 2018-07-08 16:52 | Emergency (ER) | payer OTHER ==
[2018-07-08] MEDS ORDERED: Sodium Chloride 0.9% 10 ML Syringe FLUSH PRN (17:14)
[2018-07-08] MEDS ORDERED: Sodium Chloride 0.9% 1,000 ML IV SCH (17:30)
[2018-07-08] MEDS ORDERED: Acetaminophen 325 MG Tab PO ONE (17:57)
--- NOTE | 2018-07-08 18:04 | EDM.PDOC ---
ED HPI GENERAL MEDICAL PROBLEM - General Chief Complaint: Neurological Problem Stated Complaint: [facility] Time Seen by Provider: 07/08/18 17:07 Source of Information: Reports: Patient, EMS, RN Notes Reviewed - History of Present Illness INITIAL COMMENTS - FREE TEXT/NARRATIVE: 22-year-old female has been brought in by EMS after what sounds like seizure activity. She called her friend this late afternoon stating that she was not feeling well. When friends came over she found her sitting in her chair with her arms clenched up against her chest and neck with some slight jerking activity. Doesn't sound like there was a true course tonic-clonic activity that would be expected with a true generalized seizure. She then was sleepy for at least the initial 10:15 minutes. By the time EMS arrived she was awake, still somewhat drowsy. Neuro exam at that time was normal. She does have history of what is thought to have been prior seizures. However she also has had prior recent EEG that is reported as normal and also normal MRI. She does have history of anxiety disorder and panic attacks. She currently is on BuSpar, Klonopin, Effexor and Topamax. Listed dosage of Topamax 50 mg twice a day. She does not recall the incident this afternoon. Does remember events of earlier today. She does remember eating lunch. She does not remember much after that. Her friend found her sitting in a chair, she did not fall or strike her head. She has not been recently ill. Head Pain Score (Numeric/FACES): 7 - Related Data Allergies Allergy/AdvReac Type Severity Reaction Status Date / Time cephalexin [From Keflex] Allergy Cannot Verified 06/08/18 18:16 Remember egg Allergy Hives Verified 06/10/18 08:35 ketorolac [From Toradol] Allergy Other Verified 06/08/18 18:16 sertraline [From Zoloft] Allergy Hives Verified 06/08/18 18:16 Home Meds: Home Meds Venlafaxine [Effexor XR] 300 mg PO DAILY 02/16/18 [History] busPIRone [Buspar] 15 mg PO TID 02/16/18 [History] clonazePAM [Klonopin] 1.5 mg PO BID PRN 02/16/18 [History] Cholecalciferol (Vitamin D3) [Vitamin D3] 2,000 unit PO DAILY 03/25/18 [History] Dicyclomine [Bentyl] 20 mg PO QID PRN 07/08/18 [History] Topiramate [Topamax] 50 mg PO BID 07/08/18 [History] Past Medical History HEENT History: Reports: Impaired Vision Cardiovascular History: Reports: None Respiratory History: Reports: Sleep Apnea Gastrointestinal History: Reports: None Genitourinary History: Reports: Pyelonephritis, UTI, Recurrent WELDER History: Reports: Ectopic , Spontaneous , Other (See Below) Other WELDER History: ovarian cysts, "heterotopic ." right fallopian tube removed. Musculoskeletal History: Reports: None Neurological History: Reports: Other (See Below) Other Neuro History: pseudoseizures Psychiatric History: Reports: Anxiety, Depression, Panic Attack Endocrine/Metabolic History: Reports: Obesity/BMI 30+ Hematologic History: Reports: None Immunologic History: Reports: None Oncologic (Cancer) History: Reports: None Dermatologic History: Reports: None - Infectious Disease History Infectious Disease History: Reports: Chicken Pox - Past Surgical History Head Surgeries/Procedures: Reports: None HEENT Surgical History: Reports: Adenoidectomy, Oral Surgery, Tonsillectomy Cardiovascular Surgical History: Reports: None GI Surgical History: Reports: Cholecystectomy Female Surgical History: Reports: Oophorectomy, Other (See Below) Other Female Surgeries/Procedures: right ovary removed March 2018, irregular periods Neurological Surgical History: Reports: None Musculoskeletal Surgical History: Reports: None Oncologic Surgical History: Reports: None Dermatological Surgical History: Reports: None Social & Family History - Family History Family Medical History: Noncontributory - Tobacco Use Smoking Status *Q: Current Every Day Smoker Years of Tobacco use: 4 Packs/Tins Daily: 0.5 - Caffeine Use Caffeine Use: Reports: Coffee, Soda Other Caffeine Use: unable to determine - Recreational Drug Use Recreational Drug Use: No - Living Situation & Occupation Living situation: Reports: Single Occupation: Employed ED ROS GENERAL - Review of Systems Review Of Systems: See Below Constitutional: Denies: Fever, Chills HEENT: Denies: Throat Pain Respiratory: Denies: Shortness of Breath, Cough Cardiovascular: Denies: Chest Pain GI/Abdominal: Denies: Abdominal Pain, Nausea, Vomiting Musculoskeletal: Denies: Neck Pain, Back Pain Skin: Reports: No Symptoms Neurological: Reports: Dizziness, Headache. Denies: Numbness, Tingling, Weakness ED EXAM, NEURO - Physical Exam Exam: See Below General Appearance: Alert, No Apparent Distress Eye Exam: Bilateral Eye: PERRL Throat/Mouth: Normal Inspection, Normal Oropharynx, Other Head Exam: Atraumatic (She has not bitten her injured her tongue) Neck: Supple, Full Range of Motion Respiratory/Chest: No Respiratory Distress, Lungs Clear, Normal Breath Sounds Cardiovascular: Regular Rate, Rhythm Neurological: Alert, Normal Mood/Affect, No Motor/Sensory Deficits, Oriented x 3 , Other ([id number] testing normal) Extremities: Normal Inspection, Normal Range of Motion Skin Exam: Warm, Dry, Normal Color Course - Vital Signs Last Recorded V/S: Last Vital Signs Temp 98.2 F 07/08/18 16:54 Pulse 109 H 07/08/18 16:54 Resp 18 07/08/18 16:54 BP 131/86 07/08/18 16:54 Pulse Ox 99 07/08/18 16:54 - Orders/Labs/Meds Orders: Active Orders 24 hr Category Date Time Status Peripheral IV Care [RC] . DIRECTED Care 07/08/18 17:15 Active Sodium Chloride 0.9% [Normal Saline] 1,000 ml Med 07/08/18 17:30 Active IV ASDIRECTED Sodium Chloride 0.9% [Saline Flush] Med 07/08/18 17:14 Active 10 ml FLUSH ASDIRECTED PRN Peripheral IV Insertion Adult [OM.PC] Stat Oth 07/08/18 17:14 Ordered Medication Orders Sodium Chloride (Normal Saline) 1,000 mls @ 150 mls/hr IV ASDIRECTED FREDY Last Admin: 07/08/18 17:25 Dose: 150 mls/hr Sodium Chloride (Saline Flush) 10 ml FLUSH ASDIRECTED PRN PRN Reason: Keep Vein Open Last Admin: 07/08/18 17:20 Dose: 10 ml Labs: Laboratory Tests 07/08/18 07/08/18 Range/Units 17:34 17:34 WBC 9.40 (3.98-10.04) K/mm3 RBC 4.65 (3.98-5.22) M/mm3 Hgb 14.4 (11.2-15.7) gm/L Hct 42.6 (34.1-44.9) % MCV 91.6 (79.4-94.8) fl MCH 31.0 (25.6-32.2) pg MCHC 33.8 (32.2-35.5) g/dl RDW Std Deviation 43.2 (36.4-46.3) fL Plt Count 301 (182-369) K/mm3 MPV 8.6 L (9.4-12.3) fl Neut % (Auto) 69.5 (34.0-71.1) % Lymph % (Auto) 22.0 (19.3-51.7) % [place] % (Auto) 5.9 (4.7-12.5) % Eos % (Auto) 2.3 (0.7-5.8) Baso % (Auto) 0.2 (0.1-1.2) % Neut # (Auto) 6.53 H (1.56-6.13) K/mm3 Lymph # (Auto) 2.07 (1.18-3.74) K/mm3 [place] # (Auto) 0.55 H (0.24-0.36) K/mm3 Eos # (Auto) 0.22 (0.04-0.36) K/mm3 Baso # (Auto) 0.02 (0.01-0.08) K/mm3 Sodium 142 (136-145) mEq/L Potassium 3.4 L (3.5-5.1) mEq/L Chloride 108 H (98-107) mEq/L Carbon Dioxide 22 (21-32) mEq/L Anion Gap 15.4 H (5-15) BUN 10 (7-18) mg/dL Creatinine 1.1 H (0.55-1.02) mg/dL Est Cr Clr Drug Dosing 65.23 mL/min Estimated GFR (MDRD) > 60 (>60) mL/min BUN/Creatinine Ratio 9.1 L (14-18) Glucose 81 (74-106) mg/dL Calcium 9.6 (8.5-10.1) mg/dL Total Bilirubin 0.2 (0.2-1.0) mg/dL AST 17 (15-37) U/L ALT 25 (14-59) U/L Alkaline Phosphatase 102 (46-116) U/L Total Protein 7.6 (6.4-8.2) g/dl Albumin 3.5 (3.4-5.0) g/dl Globulin 4.1 gm/dL Albumin/Globulin Ratio 0.9 L (1-2) Meds: Medications Generic Name Dose Route Start Last Admin Trade Name Anirudh PRN Reason Stop Dose Admin Sodium Chloride 1,000 mls @ 150 mls/hr 07/08/18 17:30 07/08/18 17:25 Normal Saline IV 150 mls/hr ASDIRECTED FREDY Administration Sodium Chloride 10 ml 07/08/18 17:14 07/08/18 17:20 Saline Flush FLUSH 10 ml ASDIRECTED PRN Administration Keep Vein Open Discontinued Medications Generic Name Dose Route Start Last Admin Trade Name Anirudh PRN Reason Stop Dose Admin Acetaminophen 975 mg 07/08/18 17:57 07/08/18 18:04 Tylenol PO 07/08/18 17:58 975 mg NOW ONE Administration Departure - Departure Time of Disposition: 18:54 Disposition: Home, Self-Care 01 Condition: Fair Clinical Impression: Seizure - Discharge Information Forms: ED Department Discharge Additional Instructions: Increase her Topamax to 50 mg 3 times daily, follow-up with your medical provider early next week for recheck. Rest, drink plenty of fluids to maintain hydration. Return to ED as needed if symptoms worsening in any way. - My Orders Last 24 Hours: My Active Orders 07/08/18 17:14 Sodium Chloride 0.9% [Saline Flush] 10 ml FLUSH ASDIRECTED PRN Peripheral IV Insertion Adult [OM.PC] Stat 07/08/18 17:15 Peripheral IV Care [RC] . DIRECTED 07/08/18 17:30 Sodium Chloride 0.9% [Normal Saline] 1,000 ml IV ASDIRECTED - Assessment/Plan Last 24 Hours: My Active Orders 07/08/18 17:14 Sodium Chloride 0.9% [Saline Flush] 10 ml FLUSH ASDIRECTED PRN Peripheral IV Insertion Adult [OM.PC] Stat 07/08/18 17:15 Peripheral IV Care [RC] . DIRECTED 07/08/18 17:30 Sodium Chloride 0.9% [Normal Saline] 1,000 ml IV ASDIRECTED
== END 2018-07-08 19:09 | disposition home or self-care (01) ==
LOC: JD.ED 16:52
DX: R56.9 Unspecified convulsions (principal); F41.9 Anxiety disorder, unspecified; F32.9 Major depressive disorder, single episode, unspecified; Z88.1 Allergy status to other antibiotic agents; Z88.6 Allergy status to analgesic agent; Z88.8 Allergy status to other drugs, medicaments and biological substances; Z79.899 Other long term (current) drug therapy
CPT/HCPCS: 36415; 80053; 85025; 96360; 96361; 99285; A9270; J7040; 99283